=== PATIENT | male | born 1970 | race Caucasian/White ===

== ENCOUNTER → 2021-01-08 | Outpatient (CLI) | payer OTHER ==
[~2021-01-08] MED LIST: ALDACTONE25 MG PO; BACTRIM DS TAB1 EACH PO; CALAN SR120 MG PO; COZAAR100 MG PO; KEFLEX CAP 500500 MG PO; PEPCID20 MG PO
== END ==
LOC: KOH-I 09:45
DX: K76.0 Fatty (change of) liver, not elsewhere classified (principal)
CPT/HCPCS: 76705

== ENCOUNTER → 2021-10-27 | Outpatient (CLI) | payer OTHER | LOC: KOH-I 10-02 08:00 | DX: K76.0 Fatty (change of) liver, not elsewhere classified (principal) | CPT/HCPCS: 76705 ==